=== PATIENT | male | born 1995 | race Caucasian/White ===

== ENCOUNTER 2025-01-07 20:59 | Emergency (ER) | payer BC ==
[~2025-01-07] VITALS: Ht 180.3 cm; Wt 96.5 kg
[2025-01-07 21:04] VITALS: BP 132/69; PULSE 83; RESP 16; O2SAT 98
[2025-01-08] MEDS ORDERED: bacitracin 15gm ointment TP ONE (01:15)
[2025-01-08 01:51] VITALS: TEMP 97.7
== END 2025-01-08 01:54 | disposition home or self-care (01) ==
LOC: ER 21:00
DX: S61.210A Laceration without foreign body of right index finger without damage to nail, initial encounter (principal); S61.011A Laceration without foreign body of right thumb without damage to nail, initial encounter; W26.0XXA Contact with knife, initial encounter; Y93.89 Activity, other specified; Y92.89 Other specified places as the place of occurrence of the external cause; Y99.8 Other external cause status
CPT/HCPCS: 12001; 99282; A6258; A6449